=== PATIENT | female | born 1995 | race Caucasian/White ===

== ENCOUNTER 2016-12-01 19:35 | Emergency (ER) | payer OTHER ==
[2016-12-01 19:42] VITALS: O2SAT 96
--- NOTE | 2016-12-01 20:34 | EDPHY ---
H & P Stated Complaint: R hand laceration, fingers 2-4 feel numb/"not right" Time Seen by Provider: 12/01/16 20:25 HPI/ROS: CHIEF COMPLAINT: Laceration HISTORY OF PRESENT ILLNESS: The patient is a 21-year-old female who comes to the emergency department complaining of a laceration to the palm of her right hand. She states that she was putting ice into a glass when it broke and stabbed her in the hand. She states that the head of glass was about 2 inches long. She is worried that there may still be some glass inside of her hand. She states that she has some numbness to her middle and ring finger on that hand but has normal range of motion. She has normal cap refill. REVIEW OF SYSTEMS: Constitutional: denies: chills, fever, recent illness, recent injury EENTM: denies: blurred vision, double vision, nose congestion Respiratory: denies: cough, shortness of breath Cardiac: denies: chest pain, irregular heart rate, lightheadedness, palpitations Gastrointestinal/Abdominal: denies: abdominal pain, diarrhea, nausea, vomiting, blood streaked stools Genitourinary: denies: dysuria, frequency, hematuria, pain Musculoskeletal: denies: joint pain, muscle pain Skin: denies: CC I Neurological: denies: headache, numbness, paresthesia, tingling, dizziness, weakness Hematologic/Lymphatic: denies: blood clots, easy bleeding, easy bruising Immunologic/allergic: denies: HIV/AIDS, transplant EXAM: GENERAL: Well-appearing, well-nourished and in no acute distress. HEAD: Atraumatic, normocephalic. EYES: Pupils equal round and reactive to light, extraocular movements intact, sclera anicteric, conjunctiva are normal. ENT: TMs normal, nares patent, oropharynx clear without exudates. Moist mucous membranes. NECK: Normal range of motion, supple without lymphadenopathy or JVD. LUNGS: Breath sounds clear to auscultation bilaterally and equal. No wheezes rales or rhonchi. HEART: Regular rate and rhythm without murmurs, rubs or gallops. ABDOMEN: Soft, nontender, normoactive bowel sounds. No guarding, no rebound. No masses appreciated. BACK: No CVA tenderness, no spinal tenderness, step-offs or deformities EXTREMITIES: Normal range of motion, no pitting or edema. No clubbing or cyanosis. NEUROLOGICAL: Cranial nerves II through XII grossly intact. Normal speech, normal gait. 5/5 strength, normal movement in all extremities, normal sensation PSYCH: Normal mood, normal affect. SKIN: See diagram Source: Patient Exam Limitations: No limitations - Personal History LMP (Females 10-55): Now Current Tetanus/Diphtheria Vaccine: Unsure - Medical/Surgical History Hx Asthma: No Hx Chronic Respiratory Disease: No Hx Diabetes: No Hx Cardiac Disease: No Hx Renal Disease: No Hx Cirrhosis: No Hx Alcoholism: No Hx HIV/AIDS: No Hx Splenectomy or Spleen Trauma: No Other PMH: PMHx: denies. PSHx: rhinoplasty - Family History Significant Family History: No pertinent family hx - Social History Smoking Status: Never smoked Alcohol Use: Sober Drug Use: None Constitutional: Initial Vital Signs Temperature (C) 37 C 12/01/16 19:39 Heart Rate 74 12/01/16 19:39 Respiratory Rate 14 12/01/16 19:39 Blood Pressure 120/69 12/01/16 19:39 O2 Sat (%) 96 12/01/16 19:39 O2 Delivery Mode Room Air Allergies/Adverse Reactions: No Known Allergies Allergy (Unverified 12/01/16 19:39) ED Images - Extremities Hands Front Left/Right: 1 - 1 cm puncture/laceration. No palpable foreign body. She complains of mild numbness to the ring and middle finger. Normal range of motion of the PIP and the IP joints. Normal capillary refill. Normal pulses. Medical Decision Making - Diagnostics Imaging Results: Imaging Impressions Hand X-Ray 12/01/16 20:21 Impression: No definite radiopaque foreign body identified. Imaging: Discussed imaging studies w/ call box wirer Radiologist Procedures: Procedure: Laceration repair. Verbal consent was obtained from the patient. The 1 cm palm laceration was anesthetized with 0.5% bupivacaine locally infiltrated. The wound was irrigated copiously according to protocol, draped and explored to its base. It was approximately 1 cm deep. There were no deep structures involved. No tendon , nerve, or vascular injury was identified when explored through full range of motion. No foreign body was identified. The wound was repaired with 6.0 Prolene, 3 sutures, interrupted. The wound repair was simple without wound margin revisement or multiple flap alignment. The procedure was performed by myself. A dressing was then placed with sterile gauze and bacitracin. ED Course/Re-evaluation: Patient tolerated laceration repair. We discussed follow up with Hand surgery for her paresthesias. She has full function. She understands this plan declines further workup or testing at this time. Departure - Departure Disposition: Home, Routine, Self-Care Clinical Impression: Laceration Condition: Fair Instructions: Laceration (ED) Additional Instructions: Have your sutures removed in 7-10 days. Referrals: BREONNA OVERTON [Other] - As per Instructions
[2016-12-01 21:59] VITALS: BP 137/92; PULSE 69; RESP 16; TEMP 98.6
== END 2016-12-01 21:58 | disposition home or self-care (01) ==
PROC: 0HQFXZZ Repair Right Hand Skin, External Approach (ICD-10-PCS; principal; 2016-12-01)
DX: S61.411A Laceration without foreign body of right hand, initial encounter (principal); W25.XXXA Contact with sharp glass, initial encounter